=== PATIENT | male | born 1940 | race Caucasian/White ===

== ENCOUNTER 2020-02-27 11:17 | Emergency (ER) | payer OTHER ==
[~2020-02-27] VITALS: Ht 175.3 cm; Wt 81.6 kg
[~2020-02-27 11:17] MED LIST: CARVEDILOL3.125 MG PO; COREG6.25 MG PO; FARXIGA10 MG PO; MOBIC15 MG PO; PRINIVIL10 MG PO
[2020-02-27 13:49] LABS: HEMOGLOBIN 12.7 gm/dl (14.0-17.5); RED BLOOD COUNT 5.4 M/UL (4.20-5.50); WHITE BLOOD COUNT 8.4 K/UL (4.5-11.0)
[2020-02-27 14:22] LABS: BUN/CREATININE RATIO 18 (0-10)
[2020-02-27] MEDS ORDERED: COREG6.25 MG PO (15:17)
[2020-02-27] MEDS ORDERED: GLUCOPHAGE1000 MG PO (15:19)
[2020-02-27] MEDS ORDERED: CRESTOR5 MG PO (15:19)
[2020-02-27] MEDS ORDERED: VITAMIN D21250 MCG PO (15:19)
[2020-02-27] MEDS ORDERED: ACTOS45 MG PO (15:21)
[2020-02-27] MEDS ORDERED: ASPIRIN 325MG325 MG PO (15:59)
[2020-02-28 05:05] LABS: HEMOGLOBIN 11.5 gm/dl (14.0-17.5); RED BLOOD COUNT 4.87 M/UL (4.20-5.50); WHITE BLOOD COUNT 7.3 K/UL (4.5-11.0)
[2020-02-28 05:43] LABS: BUN/CREATININE RATIO 29 (0-10)
[2020-02-28] MEDS ORDERED: ZITHROMAX250 MG PO (12:47)
== END 2020-02-28 14:45 | disposition home or self-care (01) ==
LOC: ER1 11:17 → CDU 14:30
PROVIDERS: Emergency Medicine; Internal Medicine
DX: U07.1 COVID-19 (principal); J12.89 Other viral pneumonia; I10 Essential (primary) hypertension; E11.9 Type 2 diabetes mellitus without complications; I25.10 Atherosclerotic heart disease of native coronary artery without angina pectoris; Z85.46 Personal history of malignant neoplasm of prostate; Z85.828 Personal history of other malignant neoplasm of skin; Z98.890 Other specified postprocedural states; Z79.899 Other long term (current) drug therapy; Z79.82 Long term (current) use of aspirin
CPT/HCPCS: 36600; 71045; 80048; 80053; 81001; 82550; 82553; 82803; 82962; 83874; 83880; 84484; 85025; 85379; 86900; 86901; 87040; 93005; 94664; 96365; 96366; 96367; 96372; 96375; 96376; 99285; J0456; J0696; J1100; J1650; J7030; J7040; J7050

== ENCOUNTER 2020-07-15 01:21 | Emergency (ER) | payer OTHER ==
[~2020-07-15 01:21] MED LIST changes: +ACTOS45 MG PO; +ASPIRIN 325MG325 MG PO; +CRESTOR5 MG PO; +GLUCOPHAGE1000 MG PO; +VITAMIN D21250 MCG PO; +ZITHROMAX250 MG PO
[2020-07-15 02:22] LABS: HEMOGLOBIN 12.5 gm/dl (14.0-17.5); RED BLOOD COUNT 5.53 M/UL (4.20-5.50); WHITE BLOOD COUNT 9.5 K/UL (4.5-11.0)
[2020-07-15 02:37] LABS: BUN/CREATININE RATIO 23 (0-10)
== END 2020-07-15 08:50 | disposition other institution (70) ==
LOC: ER1 01:21
PROVIDERS: Family Medicine
DX: G45.9 Transient cerebral ischemic attack, unspecified (principal); I48.91 Unspecified atrial fibrillation; I10 Essential (primary) hypertension; R26.9 Unspecified abnormalities of gait and mobility; I25.2 Old myocardial infarction; E11.9 Type 2 diabetes mellitus without complications
CPT/HCPCS: 70496; 70498; 80053; 82550; 82553; 83690; 83735; 83874; 84439; 84443; 84484; 85025; 85610; 85730; 93005; 96374; 99285; Q9967